=== PATIENT | male | born 1945 | race Caucasian/White ===

== ENCOUNTER 2025-04-15 15:29 | Outpatient (CLI) | payer OTHER ==
[2025-04-15 15:57] LABS: Hematocrit 43.2 % (38.8-50.0); Hemoglobin 13.8 g/dL (13.5-17.5); Mean Corpuscular Hemoglobin 27.9 pg (27.0-33.0); Mean Corpuscular Volume 87.3 fL (81.2-95.1); Platelet Count 271 10x3/uL (150-450); Red Blood Cell (RBC) Count 4.95 10x6/uL (4.32-5.72); White Blood Cell (WBC) Count 8.99 10x3/uL (3.5-10.5)
[2025-04-15 16:47] LABS: Anion Gap 14 mmol/L (10-20); BUN (Urea Nitrogen) 22 mg/dL (8.4-25.7); Calc. Creatinine Clearance 0 mL/min (70-130); Calcium 9.1 mg/dL (7.8-10.44); Carbon Dioxide 23 mmol/L (23-31); Chloride 104 mmol/L (98-107); Glucose 117 mg/dL (83-110); Potassium 4.5 mmol/L (3.5-5.1); Sodium 136 mmol/L (136-145)
== END 2025-04-15 15:30 | disposition home or self-care (01) ==
LOC: CSHLAB 15:29
PROVIDERS: ATTEND Surgery
DX: Z01.812 Encounter for preprocedural laboratory examination (principal); C67.0 Malignant neoplasm of trigone of bladder
CPT/HCPCS: 80048; 85027

== ENCOUNTER 2025-04-18 05:56 | Day surgery (SDC) | payer OTHER ==
[2025-04-15 15:44] VITALS: BMI 30.9
[2025-04-18] MEDS ORDERED: Bupivacaine/Epinephrine 0.25% 30 ML VIAL ONE (07:43)
[2025-04-18] MEDS ORDERED: PROPOFOL 20 ML ONE (07:48)
[2025-04-18] MEDS ORDERED: Ondansetron PF 4 MG/2 ML Vial ONE (07:58)
[2025-04-18] MEDS ORDERED: PHENYLEPHRINE-NS 100 MCG/ML 10 ML SYRINGE ONE (07:58)
[2025-04-18] MEDS ORDERED: CEFAZOLIN 1 GM VIAL ONE (09:17)
[2025-04-18] MEDS ORDERED: Bupivacaine HCl 0.5%/Epinephrine 1:200,000/PF 30 ml Vial ONE (09:28)
== END 2025-04-18 12:00 | disposition home or self-care (01) ==
LOC: CSHSDC 05:56
PROVIDERS: ATTEND Surgery
PROC: 0JH60WZ Insertion of Totally Implantable Vascular Access Device into Chest Subcutaneous Tissue and Fascia, Open Approach (ICD-10-PCS; principal; 2025-04-18)
DX: C67.0 Malignant neoplasm of trigone of bladder (principal); I25.10 Atherosclerotic heart disease of native coronary artery without angina pectoris; K21.9 Gastro-esophageal reflux disease without esophagitis; Z95.1 Presence of aortocoronary bypass graft; Z87.891 Personal history of nicotine dependence; Z79.02 Long term (current) use of antithrombotics/antiplatelets; Z79.899 Other long term (current) drug therapy
CPT/HCPCS: 36561; 71045; C1788; J0690; J1100; J1642; J2405; J2704; J3010